=== PATIENT | male | born 1960 | race Caucasian/White ===

== ENCOUNTER → 2017-02-23 | Outpatient (CLI) | payer OTHER ==
[~2017-02-23] MED LIST: OMNIPAQUE 350 MG/ML, 100ML BOTTLE ONE
== END | disposition home or self-care (01) ==
LOC: RAD 16:13
PROVIDERS: ATTEND Family Medicine
DX: K57.30 Diverticulosis of large intestine without perforation or abscess without bleeding (principal); K57.32 Diverticulitis of large intestine without perforation or abscess without bleeding; M25.562 Pain in left knee
CPT/HCPCS: 73560; 74177; Q9967

== ENCOUNTER 2017-06-18 16:15 | Inpatient (IN) | payer OTHER ==
[~2017-06-18] VITALS: Ht 182.9 cm; Wt 86.0 kg
[2017-06-18] MEDS ORDERED: SODIUM CHLORIDE FLUSH 10ML SYR IVF ONE ×2 (16:30→17:00)
[2017-06-18] MEDS ORDERED: ATOR-2 PO (16:54)
[2017-06-18 16:55] LABS: MEAN CORPUSCULAR HEMOGLOBIN 29.6 pg (27.5-34.5); MEAN CORPUSCULAR HGB CONC 33.2 g/dL (33.2-36.2); MEAN CORPUSCULAR VOLUME 89.1 fL (81-97); PLATELET COUNT 378 x10^3/uL (130-400); RED BLOOD COUNT 5.01 x10^6/uL (4.38-5.82); RED CELL DISTRIBUTION WIDTH 14.7 % (9.4-14.8)
[2017-06-18] MEDS ORDERED: ONDANSETRON 2MG/ML, 2ML IVPush ONE (17:00)
[2017-06-18] MEDS ORDERED: KETOROLAC 30 MG/1 ML IVPush ONE (17:00)
[2017-06-18] MEDS ORDERED: SODIUM CHLORIDE 0.9% 1,000ML IVBOLUS ONE (17:00)
[2017-06-18 17:04] LABS: ALANINE AMINOTRANSFERASE 28 U/L (12-78); ALBUMIN 3.9 g/dL (3.4-5.0); ANION GAP 7 mmol/L (5-15); CALCIUM 8.8 mg/dL (8.5-10.1); CHLORIDE 107 mmol/L (98-107); CREATININE 1.34 mg/dL (0.7-1.3)
[2017-06-18 17:06] LABS: ALKALINE PHOSPHATASE 76 U/L (45-117); BILIRUBIN,TOTAL 0.3 mg/dL (0.2-1.0)
[2017-06-18 17:10] LABS: MICROSCOPIC NOT IND
[2017-06-18] MEDS ORDERED: KETOROLAC 30 MG/1 ML ONE (17:11)
[2017-06-18] MEDS ORDERED: MORPHINE SULFATE 4 MG/ML, 1ML ONE ×4 (17:11→20:10)
[2017-06-18] MEDS ORDERED: ONDANSETRON 2MG/ML, 2ML ONE (17:11)
[2017-06-18 17:15] LABS: CULTURE INDICATED? NO
[2017-06-18] MEDS: MORPHINE SULFATE 4 MG/ML, 1ML IVPush PRN ×2 (17:16→18:15)
[2017-06-18 17:29] LABS: MD YES
[2017-06-18 17:31] LABS: <PLATELET ESTIMATE> ADEQUATE; <PLT MORPHOLOGY> NORMAL PLT MORPH; <RBC MORPHOLOGY> NORMAL; LYMPH#(MANUAL) 2.74 x10^3/uL (1-3.4); LYMPHS% (MANUAL) 12 % (22-44); MONOS% (MANUAL) 7 % (2-9); SEG#(MANUAL) 18.47 x10^3/uL (1.8-6.8); SEGS% (MANUAL) 81 % (42-75)
[2017-06-18] MEDS ORDERED: OMNIPAQUE 350 MG/ML, 100ML BOTTLE ONE (17:52)
[2017-06-18] MEDS ORDERED: morphine SULFATE 10 MG/ML, 1ML IVPush ONE (18:00)
[2017-06-18] MEDS ORDERED: METRONIDAZOLE PMX 500MG/100ML 100 ML IV ONE (18:30)
[2017-06-18] MEDS ORDERED: CIPROFLOXACIN/PMX 400MG/200ML 200 ML IV ONE (18:30)
[2017-06-18] MEDS ORDERED: HYDROmorphone 2 MG/ML, 1ML IVPush PRN (19:30)
[2017-06-18] MEDS ORDERED: hydrALAzine 20 MG/ML, 1ML IVPush PRN (19:30)
[2017-06-18] MEDS ORDERED: ACETAMINOPHEN 500 MG TABLET PO PRN (19:30)
[2017-06-18] MEDS ORDERED: OXYcodone IR 5MG TABLET PO PRN (19:30)
[2017-06-18] MEDS ORDERED: ONDANSETRON 2MG/ML, 2ML IVPush PRN (19:30)
[2017-06-18] MEDS ORDERED: CEFTRIAXONE PMX 1GM/50ML 50 ML ONE (20:10)
[2017-06-18] MEDS: CEFTRIAXONE PMX 1GM/50ML 50 ML IV SCH (20:15)
[2017-06-18 21:16] VITALS: BP 126/82
[2017-06-18] MEDS: ATORVASTATIN 40 MG TABLET PO SCH (21:46)
[2017-06-18] MEDS: METRONIDAZOLE PMX 500MG/100ML 100 ML IV SCH (21:47)
[2017-06-18] MEDS: LACTATED RINGERS 1,000 ML IV SCH (21:48)
[2017-06-19 03:28] VITALS: BP 118/75
[2017-06-19] MEDS: METRONIDAZOLE PMX 500MG/100ML 100 ML IV SCH ×3 (05:32→21:45)
[2017-06-19] MEDS: LACTATED RINGERS 1,000 ML IV SCH ×3 (05:32→21:45)
[2017-06-19 05:57] LABS: BASOPHILS # (AUTO) 0.06 x10^3/uL (0-0.1); BASOPHILS % (AUTO) 0 % (0-1); EOSINOPHILS # (AUTO) 0.02 x10^3/uL (0-0.4); EOSINOPHILS % (AUTO) 0 % (1-7); LYMPHOCYTES # (AUTO) 2.99 x10^3/uL (1-3.4); LYMPHOCYTES % (AUTO) 18 % (22-44); MD NO; MEAN CORPUSCULAR HEMOGLOBIN 29.5 pg (27.5-34.5); MEAN CORPUSCULAR HGB CONC 33.1 g/dL (33.2-36.2); MEAN CORPUSCULAR VOLUME 89.2 fL (81-97); MEAN PLATELET VOLUME 7.8 fL (7.4-10.4); MONOCYTES # (AUTO) 0.91 x10^3/uL (0.2-0.8); MONOCYTES % (AUTO) 6 % (2-9); NEUTROPHILS # (AUTO) 12.27 x10^3/uL (1.8-6.8); NEUTROPHILS % (AUTO) 76 % (42-75); PLATELET COUNT 375 x10^3/uL (130-400); RED BLOOD COUNT 4.38 x10^6/uL (4.38-5.82); RED CELL DISTRIBUTION WIDTH 14.5 % (9.4-14.8)
[2017-06-19] MEDS ORDERED: ALBUTEROL SULFATE 2.5 MG/3 ML NPPB PRN (06:00)
[2017-06-19 06:06] LABS: ANION GAP 7 mmol/L (5-15); CALCIUM 7.8 mg/dL (8.5-10.1); CHLORIDE 105 mmol/L (98-107)
[2017-06-19 06:07] LABS: CREATININE 1.06 mg/dL (0.7-1.3)
[2017-06-19] MEDS ORDERED: VENTOLIN 90 MCG HOMEINH PRN (06:30)
[2017-06-19 08:05] VITALS: BP 132/75
[2017-06-19 14:05] VITALS: BP 112/68
[2017-06-19 19:26] VITALS: BP 142/76
[2017-06-19] MEDS: CEFTRIAXONE PMX 1GM/50ML 50 ML IV SCH (19:58)
[2017-06-19] MEDS: ATORVASTATIN 40 MG TABLET PO SCH (20:02)
[2017-06-20 00:44] VITALS: BP 121/66
[2017-06-20] MEDS: METRONIDAZOLE PMX 500MG/100ML 100 ML IV SCH (05:41)
[2017-06-20] MEDS: LACTATED RINGERS 1,000 ML IV SCH (05:42)
[2017-06-20 05:57] LABS: BASOPHILS # (AUTO) 0.05 x10^3/uL (0-0.1); BASOPHILS % (AUTO) 0 % (0-1); EOSINOPHILS # (AUTO) 0.05 x10^3/uL (0-0.4); EOSINOPHILS % (AUTO) 0 % (1-7); LYMPHOCYTES # (AUTO) 3.55 x10^3/uL (1-3.4); LYMPHOCYTES % (AUTO) 24 % (22-44); MD NO; MEAN CORPUSCULAR HEMOGLOBIN 29.4 pg (27.5-34.5); MEAN PLATELET VOLUME 7.8 fL (7.4-10.4); MONOCYTES # (AUTO) 1.19 x10^3/uL (0.2-0.8); MONOCYTES % (AUTO) 8 % (2-9); NEUTROPHILS # (AUTO) 10.06 x10^3/uL (1.8-6.8); NEUTROPHILS % (AUTO) 68 % (42-75); PLATELET COUNT 343 x10^3/uL (130-400); RED BLOOD COUNT 4.21 x10^6/uL (4.38-5.82); RED CELL DISTRIBUTION WIDTH 14.4 % (9.4-14.8)
[2017-06-20] MEDS ORDERED: METR500T8 PO (07:18)
[2017-06-20] MEDS ORDERED: CIPR500T3 PO (07:18)
[2017-06-20] MEDS ORDERED: ACET500T71 PO (07:18)
[2017-06-20 07:38] VITALS: BP 122/72
== END 2017-06-20 12:45 | disposition home or self-care (01) | DRG 392 ==
LOC: ED 17:13 → EDIP 18:28 → 3NE 20:41
PROVIDERS: ADMIT Hospitalist; ATTEND Hospitalist
DX: K57.32 Diverticulitis of large intestine without perforation or abscess without bleeding (principal); E78.5 Hyperlipidemia, unspecified; N20.0 Calculus of kidney; K52.9 Noninfective gastroenteritis and colitis, unspecified; Z82.49 Family history of ischemic heart disease and other diseases of the circulatory system; Z90.49 Acquired absence of other specified parts of digestive tract; Z83.79 Family history of other diseases of the digestive system
CPT/HCPCS: 36415; 74177; 80048; 80053; 81003; 83690; 83735; 84100; 85025; 96361; 96374; 96375; 96376; J0696; J1885; J2405; Q9967; J2270; J7030; J7120; J7512

== ENCOUNTER → 2018-06-08 | Outpatient (CLI) | payer OTHER ==
[~2018-06-08] MED LIST changes: +ACET500T71 PO; +ATOR-2 PO; +CIPR500T3 PO; +METR-90 PO; -OMNIPAQUE 350 MG/ML, 100ML BOTTLE ONE
== END | disposition home or self-care (01) ==
LOC: CFH 14:46
PROVIDERS: ATTEND Internal Medicine Cardiovascular Disease
DX: R07.9 Chest pain, unspecified (principal); R94.31 Abnormal electrocardiogram [ECG] [EKG]; Z72.0 Tobacco use
CPT/HCPCS: 93306

== ENCOUNTER 2020-07-02 10:26 | Emergency (ER) | payer SELFPAY ==
[~2020-07-02] VITALS: Ht 182.9 cm; Wt 86.1 kg
[~2020-07-02 10:26] MED LIST changes: +ACET500T64 PO; -ACET500T71 PO; -CIPR500T3 PO; +CIPR500T4 PO
--- NOTE | 2020-07-02 10:47 | NUR ---
PT BROUGHT BACK TO ROOM FROM TRIAGE. PT CO LLQ ABDOMINAL PAIN, NAUSEA, CHILLS AND BODY ACHES X 3 DAYS. PT STATED THE HE THINKS HIS DIVERTICULITIS IS FLARING UP. PT STATED THAT HE DOES HAVE SOME BLOODY STOOL AND HAS ALSO BEEN FEELING CONSTIPATED. PT DENIES ANY FEVER, VOMITING OR SOB.
[2020-07-02] MEDS ORDERED: MORPHINE SULFATE 4 MG/ML, 1ML ONE (11:26)
[2020-07-02] MEDS ORDERED: ONDANSETRON 2MG/ML, 2ML ONE (11:26)
[2020-07-02] MEDS ORDERED: ONDANSETRON 2MG/ML, 2ML IVPush ONE (11:30)
[2020-07-02] MEDS ORDERED: SODIUM CHLORIDE 0.9% 1,000ML IVBOLUS ONE (11:30)
[2020-07-02] MEDS ORDERED: MORPHINE SULFATE 4 MG/ML, 1ML IVPush PRN (11:30)
[2020-07-02 11:31] LABS: BASOPHILS % (AUTO) 1 % (0-1); EOSINOPHILS % (AUTO) 2 % (1-7); LYMPHOCYTES % (AUTO) 12 % (22-44); MEAN CORPUSCULAR HEMOGLOBIN 29.5 pg (27.5-34.5); MEAN PLATELET VOLUME 7.4 fL (7.4-10.4); MONOCYTES % (AUTO) 7 % (2-9); NEUTROPHILS % (AUTO) 79 % (42-75); PLATELET COUNT 389 x10^3/uL (130-400); RED BLOOD COUNT 5.09 x10^6/uL (4.38-5.82); RED CELL DISTRIBUTION WIDTH 14.9 % (9.4-14.8)
[2020-07-02 11:32] LABS: MD NO
[2020-07-02 11:39] LABS: ALANINE AMINOTRANSFERASE 25 U/L (12-78); ALBUMIN 3.6 g/dL (3.4-5.0); ANION GAP 9 mmol/L (5-15); CALCIUM 8.9 mg/dL (8.5-10.1); CHLORIDE 109 mmol/L (98-107); CREATININE 1.14 mg/dL (0.7-1.3)
[2020-07-02 11:41] LABS: ALKALINE PHOSPHATASE 92 U/L (45-117); TOTAL PROTEIN 7.7 g/dL (6.4-8.2)
--- NOTE | 2020-07-02 11:56 | NUR ---
PT RESTING COMFORTABLY. CALL LIGHT WITHIN REACH
[2020-07-02 12:11] LABS: MICROSCOPIC AUTO
[2020-07-02] MEDS ORDERED: OMNIPAQUE 350 MG/ML, 100ML BOTTLE ONE (12:22)
[2020-07-02] MEDS ORDERED: KETOROLAC 30 MG/1 ML IVPush ONE (13:00)
[2020-07-02] MEDS ORDERED: KETOROLAC 30 MG/1 ML ONE (13:07)
--- NOTE | 2020-07-02 13:17 | NUR ---
PT GIVEN TORADOL FOR PAIN. CALL LIGHT WITHIN REACH
[2020-07-02] MEDS ORDERED: METRONIDAZOLE PMX 500MG/100ML 100 ML ONE (14:42)
[2020-07-02] MEDS ORDERED: CIPROFLOXACIN/PMX 400MG/200ML 200 ML ONE (14:42)
--- NOTE | 2020-07-02 14:52 | NUR ---
Pt resting in bed, call light in reach.
[2020-07-02] MEDS ORDERED: CIPROFLOXACIN/PMX 400MG/200ML 200 ML IVPB ONE (15:00)
[2020-07-02] MEDS ORDERED: METRONIDAZOLE PMX 500MG/100ML 100 ML IV ONE (15:00)
--- NOTE | 2020-07-02 16:19 | NUR ---
ABX STILL INFUSING. PT RESTING COMFORTABLY
[2020-07-02 16:20] VITALS: BP 132/84
--- NOTE | 2020-07-02 17:07 | NUR ---
DISCHARGE INSTRUCTIONS REVIEWED
== END 2020-07-02 17:09 | disposition home or self-care (01) ==
LOC: ED 13:07
DX: K57.32 Diverticulitis of large intestine without perforation or abscess without bleeding (principal); R10.32 Left lower quadrant pain; R11.0 Nausea
CPT/HCPCS: 36415; 74177; 80053; 81001; 85025; 87086; 96361; 96365; 96368; 96375; 99285; J0744; J1885; J2270; J2405; J7030; Q9967